=== PATIENT | male | born 1980 | race Caucasian/White ===

== ENCOUNTER 2021-04-02 12:49 | Emergency (ER) | payer SELFPAY ==
[2021-04-02 13:22] VITALS: BP 128/60; PULSE 80; RESP 17; TEMP 36.1; O2SAT 94; BMI 31.6
--- NOTE | 2021-04-02 15:32 | ED_ITS ---
HPI - General Adult General Chief complaint: General Medical Stated complaint: pt has autism, stranded, well being check Time Seen by Provider: 04/02/21 15:32 History of Present Illness HPI narrative: Patient requesting a prescription for Lyrica for his neuropathy, he has been taking Neurontin but says it does not work as well and wants to go back on Lyrica but his insurance did not cover it last time so they switched him to Neurontin any thinks now his insurance will cover He has no acute complaints he has no fever no chest pain no shortness of breath and no acute changes in his neuropathy but feels like it is better controlled with Lyrica Related Data Previous Rx's Medication Instructions Recorded pregabalin 50 mg capsule (Lyrica) 50 mg PO TID #14 cap 04/02/21 Allergies Allergy/AdvReac Type Severity Reaction Status Date / Time No Known Food Allergies Allergy Unknown none Verified 04/02/21 15:49 Review of Systems Review of Systems: No fever no chills no headache no neck pain no sore throat no difficulty breathing or swallowing no chest pain no cough no shortness of breath no abdominal pain no nausea or vomiting no muscle weakness no loss of sensation Yes all other systems are reviewed and are negative PMFSH Past Medical History Source: nursing notes reviewed Social History Social History Advance Directives: No Advance Directives Information Provided: No Physical Exam Vital Signs: Vital Signs: Last Vital Signs Temp 96.9 F 04/02/21 13:22 Pulse 80 04/02/21 13:22 Resp 17 04/02/21 13:22 BP 128/60 04/02/21 13:22 Pulse Ox 94 04/02/21 13:22 Body Mass Index 31.6 General appearance is no acute distress Head is normocephalic atraumatic The pharynx is clear Neck is supple Chest clear to auscultation bilateral Heart no murmur Abdomen soft nontender Extremities full range of motion x4 Neuro no focal deficits Course Course Course Narrative: Well-appearing patient is given his refill and will follow wa th primary doctor Discharge Plan Discharge Clinical Impression: Medication refill Patient Disposition: Home, Self-Care Prescriptions: New pregabalin [Lyrica] 50 mg capsule 50 mg PO TID Qty: 14 RF: 0 Interventions: ED Discharge Assessment Last Done: 04/02/21 16:04 Discharge Date/Time: 04/02/21 16:05
== END 2021-04-02 16:05 | disposition home or self-care (01) ==
PROVIDERS: Emergency Provider Emergency Medicine
DX: Z76.0 Encounter for issue of repeat prescription (principal); G62.9 Polyneuropathy, unspecified; F84.0 Autistic disorder
CPT/HCPCS: 99283